=== PATIENT | female | born 1935 | race Two or more races ===

== ENCOUNTER 2022-05-07 17:34 | Emergency (ER) | payer OTHER ==
[~2022-05-07] VITALS: Ht 157.5 cm; Wt 65.0 kg
[2022-05-07 22:48] VITALS: BP 132/88
== END 2022-05-07 22:48 | disposition home or self-care (01) ==
LOC: ER 17:34
DX: S52.024A Nondisplaced fracture of olecranon process without intraarticular extension of right ulna, initial encounter for closed fracture (principal); G30.9 Alzheimer's disease, unspecified; W19.XXXA Unspecified fall, initial encounter; Y93.89 Activity, other specified; Y92.89 Other specified places as the place of occurrence of the external cause; Y99.8 Other external cause status
CPT/HCPCS: 29105; 70450; 72170; 73080; 73562